=== PATIENT | female | born 1980 | race Caucasian/White ===

== ENCOUNTER 2016-07-21 04:11 | Inpatient (IN) | payer OTHER ==
[2016-07-21] VITALS (8 sets, daily range): BP systolic 116–142; BP diastolic 64–86; PULSE 61–81; RESP 18; TEMP 97.4–98.8
[~2016-07-21 04:11] MED LIST: Benzocaine TOP; Docusate Sod/Senna PO; IBUP600 PO; PREN0.01 PO; [UNRECOGNIZED DRUG - SUPPLY]
[2016-07-21] MEDS ORDERED: LIDOCAINE HCL 1% 50 ML VIAL ONE (04:31)
[2016-07-21] MEDS ORDERED: OXYTOCIN 30 UNITS-500ML PREMIX 500 ML ONE (04:31)
[2016-07-21] MEDS ORDERED: OXYTOCIN 10 UNIT/ML AMP ONE (04:32)
[2016-07-21] MEDS ORDERED: LACTATED RINGER'S 1000 ML INJ 1,000 ML IV SCH (05:20)
[2016-07-21] MEDS ORDERED: LACTATED RINGER'S 1000 ML INJ 1,000 ML IV PRN (05:20)
--- NOTE | 2016-07-21 05:24 | PD.OB.DELI ---
Delivery Date: Jul 21, 2016 Anesthesia: None Episiotomy: None Vaginal Delivery: Normal, Spontaneous Presentation: Occiput anterior Nuchal Cord: None Delayed cord clamping (45 sec): Yes Infant: Male, Single One Minute : 9 Five Minute : 9 Weight: 7# 4 oz Care: Spontaneous crying, Responded to stimulation Placenta: Spontaneous delivery, Intact, 3 vessel cord Laceration: Vaginal laceration, 1 deg Flo Theodore MD Jul 21, 2016 05:24
[2016-07-21] MEDS ORDERED: SODIUM CHLORID 0.9% 500 ML INJ 500 ML IV ONE (05:30)
[2016-07-21] MEDS ORDERED: SODIUM CHLORIDE 0.9% FLUSH 5 ML FLUSH IV PRN (05:30)
[2016-07-21] MEDS ORDERED: MINERAL OIL 10 ML VIAL TOPICAL PRN (05:30)
[2016-07-21] MEDS ORDERED: OXYTOCIN 30 UNITS-500ML PREMIX 500 ML IV ONE (05:30)
[2016-07-21] MEDS ORDERED: oxyCODONE/ACETAMINOPHEN 5 MG/325 MG TAB PO PRN (05:30)
[2016-07-21] MEDS ORDERED: LIDOCAINE HCL 1% 50 ML VIAL INFIL PRN (05:30)
[2016-07-21] MEDS ORDERED: ALUMINUM/MAGNESIUM/SIMETH 30 ML CUP PO PRN (05:30)
[2016-07-21] MEDS ORDERED: WITCH HAZEL 50%/GLYCERIN 12.5% 40 PAD JAR TOPICAL PRN (05:30)
[2016-07-21] MEDS ORDERED: BENZOCAINE 20% TOPICAL SPRAY 60 ML CAN TOPICAL PRN (05:30)
[2016-07-21] MEDS ORDERED: DOCUSATE SODIUM 50 MG/SENNA 8.6 MG TAB PO PRN (05:30)
[2016-07-21] MEDS ORDERED: LIDOCAINE HCL 1% 50 ML VIAL I-DERMAL PRN (05:30)
[2016-07-21] MEDS ORDERED: ZOLPIDEM TARTRATE 5 MG TAB PO PRN (05:30)
[2016-07-21] MEDS ORDERED: CITRIC ACID-SODIUM CITRATE LIQ 30 ML UDC PO SCH (05:30)
[2016-07-21] MEDS ORDERED: ONDANSETRON ODT 4 MG TAB PO PRN (05:30)
[2016-07-21] MEDS ORDERED: ACETAMINOPHEN 325 MG TAB PO PRN (05:30)
--- NOTE | 2016-07-21 05:35 | HHI.HP ---
HPI Chief Complaint labor Date Seen: Jul 21, 2016 Time Seen: 04:40 Travel History International Travel<30 Days: No Contact w/Intl Traveler<30Days: No Known Affected Area: No History of Present Illness HPI active labor Para: 1 : 2 Last Menstrual Period: Jul 21, 2016 History Past Medical History Narrative Medical patient 40 weeks yesterday, active labo at 10 cm Medical History: Denies Significant Hx Past Surgical History Narrative Surgical LEEP Family History Family History: Negative Social History Alcohol Use: No Tobacco Use: No Substance Abuse: No Allergies-Medications (Allergen,Severity, Reaction): Coded Allergies: No Known Allergies (Unverified , 06/01/14) Home Meds Active Scripts [Medela electric pump] No Conflict Check #1 Prov:Taniya Schmidt CNM TRAUMA PROGRAM MANAGER 06/03/14 [Benzocaine] (Americaine 20% Topical [place])60 SPRAY/60 ML SPRAY No Conflict Check1 [place] TOP Q4H PRN (PAIN) #1 CAN Ref 0 Prov:Taniya Schmidt CNM TRAUMA PROGRAM MANAGER 06/03/14 Ibuprofen (Motrin 600 Mg Tab)600 Mg [id number] Mg PO Q6H PRN ( [place]AMP[place]) # 30 TAB Ref 0 Prov:Taniya Schmidt CNM TRAUMA PROGRAM MANAGER 06/03/14 [Docusate Sod/Senna] (Itzel Colace Tab 8.6 Mg Tab)1 TAB TAB No Conflict Check2 Tab PO Q12H PRN (CONSTIPATION) #20 TAB Ref 0 Prov:Taniya Schmidt CNM TRAUMA PROGRAM MANAGER 06/03/14 Reported Medications Multivit/Min/Fol Ac/Iron/Pren ( Vit ( Plus)) Tab1 Tab PO DAILY 06/01/14 Review of Systems Except as stated in HPI: all other systems reviewed are Neg Physical Exam Narrative GENERAL: Well-nourished, well-developed patient. SKIN: Warm and dry. HEAD: Normocephalic and atraumatic. EYES: No scleral icterus. No injection or drainage. ENT: No nasal drainage noted. Mucous membranes pink. Airway patent. NECK: Supple, trachea midline. No JVD. CARDIOVASCULAR: Regular rate and rhythm without murmurs, gallops, or rubs. RESPIRATORY: Breath sounds equal bilaterally. No accessory muscle use. BREASTS: Bilateral exam showed no masses , no retractions, no nipple discharge. ABDOMEN/GI: Abdomen soft, non-tender, bowel sounds present, no rebound, no guarding Gravid to [-] weeks size Fundal Height: [-] GENITOURINARY: External Genitalia: intact and normal in appearance BUS glands: [-] Cervix: [-] Dilatation: [-] Effacement: [-] Station: [-] Presentation: [-] Membranes: [intact or ruptured] Uterine Contractions: [-] FHT's: Category: [-] Baseline: [-] Reactive: [-] Variability: [-] Decels: [-] EXTREMITIES: No cyanosis or edema. BACK: Nontender without obvious deformity. No CVA tenderness. NEUROLOGICAL: Awake and alert. Motor and sensory grossly within normal limits. Five out of 5 muscle strength in all muscle groups. Normal speech. Data Data Vital Signs Reviewed: Yes Orders Oxytocin 30 Units-500ml Premix (Pitocin (07/21/16 04:31) Lidocaine 1% Inj (50 Ml) (Xylocaine 1% I (07/21/16 04:31) Oxytocin Inj (Pitocin Inj) (07/21/16 04:32) Fentanyl Inj (Fentanyl Inj) (07/21/16 04:53) Admit To Inpatient (07/21/16 ) Code Status (07/21/16 05:20) Vital Signs (Adult) .Per protocol (07/21/16 05:20) ^ Heart (07/21/16 05:20) ^ Amnioinfusion (07/21/16 05:20) Urinary Catheter Management .ONCE (07/21/16 05:20) Lactated Ringer's 1000 Ml Inj (Lr 1000 M (07/21/16 05:20) Lactated Ringer's 1000 Ml Inj (Lr 1000 M (07/21/16 05:20) Sodium Chlorid 0.9% 500 Ml Inj (Ns 500 M (07/21/16 05:30) Sodium Chlor 0.9% 1000 Ml Inj (Ns 1000 M (07/21/16 05:40) Lidocaine 1% Inj (50 Ml) (Xylocaine 1% I (07/21/16 05:30) Citric Acid-Sodium Citrate Liq (Bicitra (07/21/16 05:30) Fentanyl Inj (Fentanyl Inj) (07/21/16 05:30) Fentanyl Inj (Fentanyl Inj) (07/21/16 05:30) Complete Blood Count With Diff (07/21/16 05:20) Hold Clot (07/21/16 05:20) Abo/Rh Blood Type (07/21/16 05:20) Urinalysis - C+S If Indicated (07/21/16 05:20) Resp Oxygen Non Rebreathe Mask (07/21/16 ) ^ Epidural / Intrathecal Infus (07/21/16 05:20) Oxytocin 30 Units-500ml Premix (Pitocin (07/21/16 05:30) Lidocaine 1% Inj (50 Ml) (Xylocaine 1% I (07/21/16 05:30) Light Mineral Oil (Muri-Lube Oil) (07/21/16 05:30) Inpatient Certification (07/21/16 ) Specimen To Be Collected PRN (07/21/16 05:20) Vital Signs (Adult) .QSHIFT (07/21/16 05:26) Activity Oob Ad Shahrzad (07/21/16 05:26) Ice / Cold Pack PRN (07/21/16 05:26) ^ Discontinue Iv (07/21/16 05:26) ^ Sitz Bath PRN (07/21/16 05:26) ^ Massage (07/21/16 05:26) ^ Rhogam (07/21/16 05:26) Urinary Catheter Management .PRN (07/21/16 05:26) Diet Regular Basic (07/21/16 Breakfast) Sodium Chloride 0.9% Flush (Ns Flush) (07/21/16 09:00) Sodium Chloride 0.9% Flush (Ns Flush) (07/21/16 05:30) Acetaminophen (Tylenol) (07/21/16 05:30) Ibuprofen (Motrin) (07/21/16 05:30) Oxycodone-Acetamin 5-325 Mg (Percocet (07/21/16 05:30) Oxycodone-Acetamin 5-325 Mg (Percocet (07/21/16 05:30) Benzocaine 20% Top Spr (Americaine 20% T (07/21/16 05:30) Witch Sayra-Glycerin Pad (Tucks Pads) (07/21/16 05:30) Docusate Sodium-Senna (Itzel-Colace) (07/21/16 05:30) Zolpidem (Ambien) (07/21/16 05:30) Rzhfpcp-Tauld-Jxvqltp Inj (M-M-R Ii Inj) (07/21/16 16:00) Tbxx-Yer-Dtjdcn (Booster) Inj (Boostrix (07/21/16 16:00) Al-Mag Hy-Si 40-40-4 Mg/Ml Liq (Mag-Al P (07/21/16 05:30) Ondansetron Odt (Zofran Odt) (07/21/16 05:30) Assessment/Plan Problem List: (1) 40 weeks gestation of Discharge Planning in 24-48 Attending Attestation admission Flo Theodore MD Jul 21, 2016 05:35
--- NOTE | 2016-07-21 05:38 | HHI.DCPOC ---
Discharge Care Plan Diagnosis: (1) 40 weeks gestation of (2) (normal spontaneous vaginal delivery) Report Symptoms to Your Doctor -Temperate above 100.5 degrees -Redness, of incision or excessive or foul smelling drainage -Unusual pain or calf pain -Increased vaginal bleeding -Painful or difficulty urinating -Feelings of extreme sadness or anxiety after 2 weeks Goals to Promote Your Health * To prevent worsening of your condition and complications * To maintain your health at the optimal level Directions to Meet Your Goals Take your medications as prescribed Follow your dietary instruction Follow activity as directed Ensure plenty of rest for recovery Drink fluids for hydration Keep your appointments as scheduled Take your immunizations and boosters as scheduled If your symptoms worsen call your PCP, if no PCP go to Urgent Care Center or Emergency Room Smoking is Dangerous to Your Health. Avoid second hand smoke Call the 24-hour crisis hotline for domestic abuse at Flo Theodore MD Jul 21, 2016 05:37
[2016-07-21] MEDS ORDERED: SODIUM CHLOR 0.9% 1000 ML INJ 1,000 ML IV PRN (05:40)
[2016-07-21 05:45] LABS: AUTOMATED NEUTROPHIL # 8.8 TH/MM3 (1.8-7.7); BASOPHIL # 0.1 TH/MM3 (0-0.2); BASOPHIL % 0.5 % (0.0-2.0); EOSINOPHIL # 0.1 TH/MM3 (0-0.4); EOSINOPHIL % 0.6 % (0.0-4.0); HEMO FLAGS DIFF FINAL; LYMPH % 22.2 % (9.0-44.0); LYMPHOCYTE # 2.9 TH/MM3 (1.0-4.8); MEAN CELL VOLUME 87.4 FL (80.0-100.0); MEAN CORPUSCULAR HEMOGLOBIN 30.3 PG (27.0-34.0); MEAN CORPUSCULAR HGB CONC 34.7 % (32.0-36.0); MONO % 8.4 % (0.0-8.0); NEUT % 68.3 % (16.0-70.0); PLATELET COUNT 361 TH/MM3 (150-450); RED BLOOD COUNT 4.23 MIL/MM3 (4.00-5.30); RED CELL DISTRIBUTION WIDTH 13.5 % (11.6-17.2); WHITE BLOOD COUNT 12.8 TH/MM3 (4.0-11.0)
[2016-07-21 06:51] LABS: BACTERIA, URINE FEW /hpf; BLOOD, URINE MOD (NEG); COMMENT (UR) CULT NOT INDICATED; CULTURE IF INDICATED CULT NOT INDICATED; GLUCOSE,URINE NEG (NEG); KETONE, URINE 10 mg/dL (NEG); MUCUS URINE FEW /lpf (OCC); NITRITE,URINE NEG (NEG); PH, URINE 6.5 (5.0-8.5); SQUAMOUS EPITHELIAL CELL URINE 7 /hpf (0-5); URINE COLOR YELLOW (YELLW/STRAW)
[2016-07-21] MEDS ORDERED: SODIUM CHLORIDE 0.9% FLUSH 5 ML FLUSH IV SCH (09:00)
[2016-07-21] MEDS: IBUPROFEN 600 MG TAB PO PRN ×2 (12:59→21:00)
[2016-07-21] MEDS ORDERED: DIPHTH/TETANUS/ACEL PERTUSSIS (BOOSTER) 0.5 ML VIAL/PFS IM ONE (16:00)
[2016-07-21] MEDS ORDERED: MEASLES, MUMPS, RUBELLA VACCINE 0.5 ML VIAL SQ ONE (16:00)
[2016-07-21] MEDS: oxyCODONE/ACETAMINOPHEN 5 MG/325 MG TAB PO PRN (22:39)
[2016-07-22 08:00] VITALS: BP 112/74; PULSE 70; RESP 18; TEMP 98.8
[2016-07-22] MEDS: IBUPROFEN 600 MG TAB PO PRN ×3 (08:13→19:43)
[2016-07-22] MEDS: oxyCODONE/ACETAMINOPHEN 5 MG/325 MG TAB PO PRN ×3 (08:13→19:43)
--- NOTE | 2016-07-22 09:42 | HHI.OB ---
Subjective Post Day: 1 Remarks doing well dc in AM Objective Vitals/I&O Vital Signs Date Time Temp Pulse Resp B/P Pulse Ox O2 Delivery O2 Flow Rate FiO2 07/22/16 08:00 98.8 70 18 112/74 07/21/16 20:00 81 120/71 07/21/16 20:00 98.8 18 Objective Remarks GENERAL: Well-nourished, well-developed patient. . ABDOMEN/GI: Abdomen soft, non-tender. Fundus: Firm, non-tender at umbilicus. GENITOURINARY: Light to moderate bleeding. EXTREMITIES: No cyanosis or edema, non-tender, without signs of DVT. Medications and IVs Current Medications Medications (Trade) Dose Ordered Sig/Renan Route Start Time Stop Time Status Last Admin (Muri-Lube Oil) 10 ml UNSCH PRN TOPICAL 07/21/16 05:30 (NS Flush) 2 ml BID IV 07/21/16 09:00 (NS Flush) 2 ml UNSCH PRN IV 07/21/16 05:30 (Tylenol) 650 mg Q4H PRN PO 07/21/16 05:30 (Motrin) 600 mg Q6H PRN PO 07/21/16 05:30 07/22/16 08:13 (Percocet 5-325 Mg) 1 tab Q4H PRN PO 07/21/16 05:30 07/22/16 08:13 (Percocet 5-325 Mg) 2 tab Q4H PRN PO 07/21/16 05:30 (Americaine 20% Top Spr) 1 spray Q4H PRN TOPICAL 07/21/16 05:30 07/21/16 11:10 (Tucks Pads) 1 applic QID PRN TOPICAL 07/21/16 05:30 07/21/16 11:10 (Itzel-Colace) 2 tab Q12H PRN PO 07/21/16 05:30 (Ambien) 5 mg HS PRN PO 07/21/16 05:30 (Mag-Al Plus Susp Liq) 15 ml Q8H PRN PO 07/21/16 05:30 (Zofran Odt) 4 mg Q6H PRN PO 07/21/16 05:30 (Flu (Quadrivalent) Vaccine Inj) 0.5 ml ONCE ONCE IM 07/22/16 10:00 07/22/16 10:01 07/21/16 20:43 Assessment/Plan Problem List: (1) 40 weeks gestation of Discharge Planning dc in AM Arben,[place] MD Jul 22, 2016 09:42
[2016-07-22] MEDS ORDERED: OXYC1TAB63 PO (09:43)
[2016-07-22] MEDS ORDERED: INFLUENZA VIRUS VACCINE (QUADRIVALENT) 0.5 ML SYR IM ONE (10:00)
[2016-07-23] MEDS: oxyCODONE/ACETAMINOPHEN 5 MG/325 MG TAB PO PRN (02:46)
[2016-07-23] MEDS: IBUPROFEN 600 MG TAB PO PRN ×3 (02:47→15:15)
[2016-07-23 03:46] VITALS: RESP 16
--- NOTE | 2016-07-23 11:46 | HHI.DS ---
Admission Date Jul 21, 2016 at 04:11 Discharge Date: Jul 23, 2016 Admitting Diagnosis active labor full term Diagnosis: Delivery Date: Jul 21, 2016 Vaginal Delivery: Normal Infant: Male, Single Brief History active labor Pt Condition on Discharge: Good Discharge Disposition: Discharge Home Discharge Instructions Diet Instructions: As Tolerated, No Restrictions Activities You Can Perform: Pelvic Rest Activities to Avoid: Sexual Activity Elsy Michael MD Jul 23, 2016 11:46
--- NOTE | 2016-07-23 11:50 | HHI.OB ---
Subjective Post Day: 2 Remarks Pt feeling good, no pain Objective Vitals/I&O Vital Signs Date Time Temp Pulse Resp B/P Pulse Ox O2 Delivery O2 Flow Rate FiO2 07/23/16 03:46 16 07/23/16 03:46 16 Objective Remarks GENERAL: Well-nourished, well-developed patient. . ABDOMEN/GI: Abdomen soft, non-tender. Fundus: Firm, non-tender at umbilicus. GENITOURINARY: Light to moderate bleeding. EXTREMITIES: No cyanosis or edema, non-tender, without signs of DVT. PERINUM: intact, no hematomas Medications and IVs Current Medications Medications (Trade) Dose Ordered Sig/Renan Route Start Time Stop Time Status Last Admin (Muri-Lube Oil) 10 ml UNSCH PRN TOPICAL 07/21/16 05:30 (NS Flush) 2 ml BID IV 07/21/16 09:00 (NS Flush) 2 ml UNSCH PRN IV 07/21/16 05:30 (Tylenol) 650 mg Q4H PRN PO 07/21/16 05:30 (Motrin) 600 mg Q6H PRN PO 07/21/16 05:30 07/23/16 08:11 (Percocet 5-325 Mg) 1 tab Q4H PRN PO 07/21/16 05:30 07/23/16 02:46 (Percocet 5-325 Mg) 2 tab Q4H PRN PO 07/21/16 05:30 (Americaine 20% Top Spr) 1 spray Q4H PRN TOPICAL 07/21/16 05:30 07/21/16 11:10 (Tucks Pads) 1 applic QID PRN TOPICAL 07/21/16 05:30 07/21/16 11:10 (Itzel-Colace) 2 tab Q12H PRN PO 07/21/16 05:30 07/23/16 08:11 (Ambien) 5 mg HS PRN PO 07/21/16 05:30 (Mag-Al Plus Susp Liq) 15 ml Q8H PRN PO 07/21/16 05:30 (Zofran Odt) 4 mg Q6H PRN PO 07/21/16 05:30 Assessment/Plan Problem List: (1) 40 weeks gestation of Assessment and Plan term PPD #2 doing well 1. DC home 2. fu as documented Discharge Planning dc in Elsy Jaeger MD Jul 23, 2016 11:50
== END 2016-07-23 16:54 | disposition home or self-care (01) | DRG 775 ==
LOC: H2EB 04:11 → H1EA 07:42
PROVIDERS: ADMIT Obstetrics & Gynecology; ATTEND Obstetrics & Gynecology
PROC: 10E0XZZ Delivery of Products of Conception, External Approach (ICD-10-PCS; principal; 2016-07-21)
PROC: 0HQ9XZZ Repair Perineum Skin, External Approach (ICD-10-PCS; 2016-07-21)
DX: O48.0 Post-term pregnancy (principal); O70.0 First degree perineal laceration during delivery; Z3A.40 40 weeks gestation of pregnancy; Z37.0 Single live birth
CPT/HCPCS: 81001; 85025; 86900; 86901; 90686; 90715; J2590; J3010; Q2038